=== PATIENT | female | born 2000 | race Two or more races ===

== ENCOUNTER 2022-03-26 10:31 | Outpatient (CLI) | payer OTHER | END 2022-03-26 10:36 | disposition home or self-care (01) | LOC: PPH VACUNA 10:31 | PROVIDERS: ATTEND Emergency Medicine Pediatric Emergency Medicine | DX: Z23 Encounter for immunization (principal) ==

== ENCOUNTER 2022-04-05 16:51 | Emergency (ER) | payer OTHER ==
[~2022-04-05] VITALS: Ht 152.4 cm; Wt 77.1 kg
[2022-04-05] MEDS ORDERED: CARAFATE1 GM PO (22:39)
[2022-04-05] MEDS ORDERED: PREVACID30 MG PO (22:39)
[2022-04-05] MEDS ORDERED: PEPCID AC20 MG PO (22:39)
== END 2022-04-05 22:44 ==
LOC: ER 16:51
DX: K29.00 Acute gastritis without bleeding (principal); Z28.311 Partially vaccinated for COVID-19; Z91.018 Allergy to other foods

== ENCOUNTER 2022-07-06 22:21 | Emergency (ER) | payer OTHER ==
[~2022-07-06] VITALS: Ht 152.4 cm; Wt 77.1 kg
[~2022-07-06 22:21] MED LIST: CARAFATE1 GM PO; PEPCID AC20 MG PO; PREVACID30 MG PO
== END 2022-07-06 23:31 | disposition home or self-care (01) ==
LOC: ER 22:21
DX: H60.92 Unspecified otitis externa, left ear (principal)

== ENCOUNTER 2022-11-07 11:12 | Emergency (ER) | payer OTHER ==
[~2022-11-07] VITALS: Ht 152.4 cm; Wt 81.6 kg
== END 2022-11-07 14:44 | disposition home or self-care (01) ==
LOC: ER 11:12
DX: K29.70 Gastritis, unspecified, without bleeding (principal); R10.13 Epigastric pain

== ENCOUNTER 2023-03-05 16:55 | Emergency (ER) | payer OTHER ==
[~2023-03-05] VITALS: Ht 152.4 cm; Wt 81.6 kg
== END 2023-03-05 20:37 | disposition home or self-care (01) ==
LOC: ER 16:55
DX: T88.7XXA Unspecified adverse effect of drug or medicament, initial encounter (principal)

== ENCOUNTER → 2023-03-05 | Outpatient (CLI) | payer OTHER | END | disposition home or self-care (01) | LOC: PPH VACUNA | PROVIDERS: ATTEND Emergency Medicine Pediatric Emergency Medicine | DX: Z23 Encounter for immunization (principal) ==

== ENCOUNTER 2024-01-01 09:07 | Emergency (ER) | payer OTHER ==
[~2024-01-01] VITALS: Ht 152.4 cm; Wt 85.7 kg
[2024-01-01 10:28] LABS: HEMOGLOBIN 12.4 g/dL (12.0-15.00); MEAN CELL VOLUME 91.8 fL (80.00-100.00); MEAN CORPUSCULAR HEMOGLOBIN 31.6 pg (27.00-32.0); MEAN CORPUSCULAR HGB CONC 34.5 g/dl (32.0-36.0); PLATELET COUNT 183 K/uL (150-450); RED BLOOD COUNT 3.93 M/uL (4.00-6.00)
[2024-01-01] MEDS ORDERED: PROMETHAZINE HCL 50 MG/ML AMPUL IM STA (11:06)
[2024-01-01] MEDS ORDERED: PROMETHAZINE HCL 50 MG/ML AMPUL IM ONE (11:36)
[2024-01-01] MEDS ORDERED: DICYCLOMINE HCL 10 MG CAPSULE PO ONE ×2 (12:02→12:15)
== END 2024-01-01 13:33 | disposition home or self-care (01) ==
LOC: ER 09:08
PROVIDERS: General Practice
DX: R10.84 Generalized abdominal pain (principal); Z91.018 Allergy to other foods

== ENCOUNTER 2024-01-29 08:22 | Outpatient (CLI) | payer OTHER | END 2024-01-29 13:03 | disposition home or self-care (01) | LOC: TOM 08:22 | PROVIDERS: ATTEND Internal Medicine Gastroenterology | DX: K58.2 Mixed irritable bowel syndrome (principal); K30 Functional dyspepsia; E73.8 Other lactose intolerance; R14.3 Flatulence; R10.10 Upper abdominal pain, unspecified; R10.30 Lower abdominal pain, unspecified ==